=== PATIENT | female | born 1985 | race Caucasian/White ===

== ENCOUNTER → 2023-07-01 | Outpatient (CLI) | payer OTHER ==
--- NOTE | 2023-07-01 17:03 | XR ---
Abdomen: HISTORY: Chronic bloating. Comparison: None TECHNIQUE: 2 supine views of the abdomen were obtained. FINDINGS: The bowel gas pattern is nonspecific and there is no evidence of obstruction. No suspicious abdominal or pelvic calcifications are seen. The osseous structures are intact. Lung bases are clear. IMPRESSION: Nonspecific abdomen.
== END | disposition home or self-care (01) ==
LOC: RADXRMAIN 16:13
PROVIDERS: ATTEND Internal Medicine Gastroenterology
DX: R10.9 Unspecified abdominal pain (principal)
CPT/HCPCS: 74018

== ENCOUNTER 2023-08-18 09:32 | Day surgery (SDC) | payer OTHER ==
[~2023-08-18 09:32] MED LIST: LIDOCAINE 1% (10MG/ML) FOR IV START INTRADERMA PRN
[2023-08-18] MEDS: LACTATED RINGERS 1,000 ML IV SCH (09:57)
[2023-08-18] MEDS: IV FLUID CONTINUATION 1,000 ML IV ONE (10:10)
[2023-08-18 10:32] VITALS: TEMP 98
[2023-08-18] MEDS ORDERED: PROPOFOL 10 MG/ML 20 ML VIAL IV ONE (10:50)
--- NOTE | 2023-08-18 10:58 | P.PCN ---
Date of Procedure: 08/18/23 Procedure(s) Performed: BRIEF HISTORY: Patient is a 30-year-old, pleasant, white female scheduled for an upper endoscopy as above evaluation of chronic persistent nausea for the last 5 years duration. She has intermittent episodes of emesis. Denies any abdominal pain. She also complains of occasional dysphagia to solid. PROCEDURE PERFORMED: Esophagogastroduodenoscopy with biopsy. PREOPERATIVE DIAGNOSIS: Chronic intermittent nausea vomiting of 5 years duration. IV sedation per anesthesia. PROCEDURE: After informed consent was obtained, the patient was brought into the endoscopy unit. IV sedation was administered by Anesthesia under continuous monitoring. Initially the Olympus GIF-140 video endoscope was inserted into the mouth. Esophagus intubated without any difficulty. It was gradually advanced into the stomach and duodenum and carefully examined. The bulb and the second part of the duodenum appeared normal. Since weaning from the duodenum to evaluate for celiac disease. The scope at this time was withdrawn to the stomach, adequately insufflated with air, and upon careful examination, mucosa of the antrum, body, cardia and the fundus appeared normal. The scope was then withdrawn into the esophagus. Small hiatal hernia. Mild gastritis and biopsies were done from this area. Mucosa of the the GE junction was located at 39 cm from the incisors. There was 1 superficial erosion at the GE junction consistent with LA grade B reflux esophagitis. Rest of the esophagus appeared normal and the patient tolerated the procedure well. IMPRESSION: 1. Mild antral gastritis. 2. Small hiatal hernia and 1 superficial erosion at the GE junction consistent with LA grade B reflux esophagitis. RECOMMENDATIONS: The findings of this examination were discussed with the patient as well as her family. She was advised to follow-up with the biopsy results. Pepcid 20 mg twice daily. Follow-up in the office in 2 to 3 weeks..
[2023-08-18 11:11] VITALS: BP 111/78; PULSE 83; RESP 16
== END 2023-08-18 11:47 | disposition home or self-care (01) ==
LOC: ORWHC2ENDO 09:32
PROVIDERS: ATTEND Internal Medicine Gastroenterology
DX: K29.50 Unspecified chronic gastritis without bleeding (principal); K21.00 Gastro-esophageal reflux disease with esophagitis, without bleeding; K22.10 Ulcer of esophagus without bleeding; K44.9 Diaphragmatic hernia without obstruction or gangrene; I10 Essential (primary) hypertension; I47.10 Supraventricular tachycardia, unspecified; G89.29 Other chronic pain; F41.8 Other specified anxiety disorders; Z87.891 Personal history of nicotine dependence; Z88.8 Allergy status to other drugs, medicaments and biological substances; Z79.899 Other long term (current) drug therapy
CPT/HCPCS: 88305; 43239; J2704

== ENCOUNTER → 2023-12-08 | Outpatient (CLI) | payer OTHER ==
[2023-12-08 18:07] LABS: Partial Thromboplastin Time 24.6 sec (22.0-30.0); Prothrombin Time 11.1 sec (10.0-12.5)
[2023-12-09 02:27] LABS: Basophils # (A) 0.05 X 10*3/uL (0.00-0.10); Basophils % (A) 0.8 %; Eosinophils # (A) 0.35 X 10*3/uL (0.04-0.35); Eosinophils % (A) 5.3 %; HCT 41.8 % (37.2-46.3); HGB 14.2 g/dL (12.0-15.0); Lymphocytes # (A) 1.85 X 10*3/uL (0.90-5.00); Lymphocytes % (A) 27.9 %; MCH 29.8 pg (27.0-32.0); MCV 87.8 FL (80.0-97.0); Mean Platelet Volume 10.5 FL (9.5-12.2); Monocytes % (A) 4.5 %; NRBC Per 100 WBC 0 X 10*3/uL (0.00-0.01); Neutrophils # (A) 4.05 X 10*3/uL (1.80-7.70); Neutrophils % (A) 61.2 %; Platelet Count 331 X 10*3/uL (140-440); RBC 4.76 X 10*6/uL (4.10-5.20); RDW 13.7 % (11.5-14.5); WBC 6.62 X 10*3/uL (4.50-10.00)
[2023-12-09 03:07] LABS: % Iron Saturation 30.83 (12.00-45.00); ALT 8 U/L (8-44); AST 17 U/L (13-35); Albumin 4.4 g/dL (3.8-4.9); Albumin/Globulin Ratio 1.69 Ratio (1.60-3.17); Alkaline Phosphatase 54 U/L (41-126); BUN/Creat Ratio 8.71 Ratio (12.00-20.00); Blood Urea Nitrogen 6.1 mg/dL (9.0-27.0); C Reactive Protein <0.30 mg/dL (0.00-0.80); Calcium 9.3 mg/dL (8.7-10.3); Carbon Dioxide 25.9 mmol/L (21.6-31.8); Chloride 105 mmol/L (96-109); Ferritin 62.7 ng/mL (10.0-291.0); Globulin 2.6 g/dL (1.6-3.3); Glucose 86 mg/dL (70-110); Iron 127 UG/DL (50-170); Sodium 141 mmol/L (135-145); Total Bilirubin 0.4 mg/dL (0.3-1.2); Total Iron Binding Capacity 412 UG/DL (228-460)
[2023-12-09 05:08] LABS: Erythrocyte Sedimentation Rate 3 mm/Hr (0-20)
== END | disposition home or self-care (01) ==
LOC: LABWHC1 16:08
PROVIDERS: ATTEND Internal Medicine Gastroenterology
DX: R58 Hemorrhage, not elsewhere classified (principal)
CPT/HCPCS: 36415; 80053; 82728; 83540; 83550; 85025; 85610; 85652; 85730; 86140

== ENCOUNTER 2024-03-10 15:35 | Emergency (ER) | payer OTHER ==
--- NOTE | 2024-03-10 17:20 | ED ---
ENT HPI - General Chief complaint: ENT Stated complaint: Foreign obj in throat Time Seen by Provider: 03/10/24 17:02 Source: patient, RN notes reviewed Mode of arrival: ambulatory Limitations: no limitations - History of Present Illness Initial comments: This is a 38-year-old female with a history of eosinophilic esophagitis and fibromyalgia presenting to the emergency department for complaint of foreign body sensation of the right side of her throat. Patient is concerned that there may be a piece of alvarado that is lodged in her throat. She states that on 03/08/2024 is eating dinner that had a piece of crispy alvarado and felt the food scraped on the side of her throat. She endorses nausea with no reported vomiting. Denies dysphagia, dyspnea, fevers or chills. Patient endorses pain with swallowing. Patient had recent esophageal dilation with Dr. Hatch - Related Data Home Medications Medication Instructions Recorded Confirmed Desvenlafaxine Succinate [Pristiq] 100 mg PO HS 08/13/23 08/13/23 Dextroamphetamine/Amphetamine 15 mg PO QAM 08/13/23 08/13/23 LORazepam 0.5 mg PO HS 08/13/23 08/13/23 fentaNYL 25MCG/HR PATCH [Duragesic 25 mcg TOPICAL Q72H 08/13/23 08/13/23 25MCG/HR] nadoloL [Corgard] 20 mg PO HS 08/13/23 08/13/23 tiZANidine HCL [Zanaflex] 4 mg PO HS PRN 08/13/23 08/13/23 traZODone HCL 200 mg PO HS 08/13/23 08/13/23 Allergies Allergy/AdvReac Type Severity Reaction Status Date / Time prednisone Allergy NEUROPATHY Verified 03/10/24 16:25 IN FACE,HANDS,ARMS sumatriptan [From Imitrex] Allergy Unknown Verified 03/10/24 16:25 dicyclomine [From Bentyl] AdvReac URINARY Verified 03/10/24 16:25 RETENTION Review of Systems ROS Statement: Those systems with pertinent positive or pertinent negative responses have been documented in the HPI. ROS Other: All systems not noted in ROS Statement are negative. Past Medical History Past Medical History: Fibromyalgia, GERD/Reflux, Hypertension Additional Past Medical History / Comment(s): HX:SVT, MIGRAINES. PSORIASIS, SCATTERED OVER BODY. History of Any Multi-Drug Resistant Organisms: None Reported Past Surgical History: Section, Heart Catheterization Additional Past Surgical History / Comment(s): ABD LAP-PELVIC CONGESTION. LEEP X 2. Past Anesthesia/Blood Transfusion Reactions: No Reported Reaction Additional Past Anesthesia/Blood Transfusion Reaction / Comment(s): REACTS DIFFERENTLY DUE TO PAIN ISSUES. Past Psychological History: ADD/ADHD, Anxiety, Depression Smoking Status: Former smoker Past Alcohol Use History: Rare Past Drug Use History: Marijuana General Exam Limitations: no limitations General appearance: alert, in no apparent distress ENT exam: Present: normal exam, mucous membranes moist Neck exam: Present: normal inspection. Absent: tenderness, meningismus, lymphadenopathy Respiratory exam: Present: normal lung sounds bilaterally. Absent: respiratory distress, wheezes, rales, rhonchi, stridor Cardiovascular Exam: Present: regular rate, normal rhythm, normal heart sounds. Absent: systolic murmur, diastolic murmur, rubs, gallop, clicks GI/Abdominal exam: Present: soft, normal bowel sounds. Absent: distended, tenderness, guarding, rebound, rigid Extremities exam: Present: normal inspection, full ROM, normal capillary refill. Absent: tenderness, pedal edema, joint swelling, calf tenderness Skin exam: Present: warm, dry, intact, normal color. Absent: rash Course Vital Signs 03/10/24 03/10/24 03/10/24 16:23 18:07 20:07 Temperature 98.3 F 98.2 F Pulse Rate 96 84 85 Respiratory 16 18 16 Rate Blood Pressure 118/80 130/84 111/73 O2 Sat by Pulse 99 96 97 Oximetry Medical Decision Making - Medical Decision Making Was pt. sent in by a medical professional or institution (, PA, COST ACCOUNTING CLERK, urgent care, hospital, or prison...) When possible be specific @ -No Did you speak to anyone other than the patient for history (EMS, parent, family, police, friend...)? What history was obtained from this source @ -No Did you review nursing and triage notes (agree or disagree)? Why? @ -I reviewed and agree with nursing and triage notes Were old charts reviewed (outside hosp., previous admission, EMS record, old EKG, old radiological studies, urgent care reports/EKG's, prison records)? Report findings @ -No old charts were reviewed Differential Diagnosis (chest pain, altered mental status, abdominal pain women, abdominal pain men, vaginal bleeding, weakness, fever, dyspnea, syncope, headac he, dizziness, GI bleed, back pain, seizure, CVA, palpatations, mental health, musculoskeletal)? @ -Differential Dyspnea: Coronary syndrome, arrhythmia, tamponade, asthma, COPD, pulmonary embolism, p neumonia, pneumothorax, pulmonary effusion, anaphylaxis, diabetic ketoacidosis, flailed chest, pulmonary contusion, diaphragmatic rupture, anemia, neuromuscular, this is not meant to be an all-inclusive list. EKG interpreted by me (3pts min.). @ -None X-rays interpreted by me (1pt min.). @ -None done CT interpreted by me (1pt min.). @ -CT soft tissue neck with IV contrast no lymphadenopathy or masses identified U/S interpreted by me (1pt. min.). @ -None done What testing was considered but not performed or refused? (CT, X-rays, U/S, labs)? Why? @ -None What meds were considered but not given or refused? Why? @ -None Did you discuss the management of the patient with other professionals (professionals i.e. , PA, COST ACCOUNTING CLERK, lab, RT, psych nurse, social media marketing analyst, hematology nurse educator, teacher, railroad police officer, case investigator)? Give summary @ -No Was smoking cessation discussed for >3mins.? @ -No Was critical care preformed (if so, how long)? @ -No Were there social determinants of health that impacted care today? How? (Homelessness, low income, unemployed, alcoholism, drug addiction, t ransportation, low edu. Level, literacy, decrease access to med. care, prison, rehab)? @ -No Was there de-escalation of care discussed even if they declined (Discuss DNR or withdrawal of care, Hospice)? DNR status @ -No What co-morbidities impacted this encounter? (DM, HTN, Smoking, COPD, CAD, Cancer, CVA, ARF, Chemo, Hep., AIDS, mental health diagnosis, sleep apnea, morbid obesity)? @ -None Was patient admitted / discharged? Hospital course, mention meds given and route, prescriptions, significant lab abnormalities, going to OR and other pertinent info. @ -Discharge. 38-year-old female presenting with foreign body sensation in throat. On evaluation patient is noted to be quite tearful and anxious. Physical examination is unremarkable. She is provided with pain medications and antiemetics pending evaluation including CT. CT is unremarkable for foreign body or lymphadenopathy. Labs within normal limits. She is provided with viscous lidocaine, Maalox, Pepcid. On reevaluation patient states that she is feeling better. At this time, patient is stable for discharge. All questions have been answered at bedside and strict return parameters were discussed and she is verbalized understanding. Case discussed with Dr. Dean Undiagnosed new problem with uncertain prognosis? @ -No Drug Therapy requiring intensive monitoring for toxicity (Heparin, Nitro, Insulin, Cardizem)? @ -No Were any procedures done? @ -No Diagnosis/symptom? @ -foreign body sensation in throat Acute, or Chronic, or Acute on Chronic? @ -acute Uncomplicated (without systemic symptoms) or Complicated (systemic symptoms)? @ -uncomplicated Side effects of treatment? @ -No Exacerbation, Progression, or Severe Exacerbation? @ -No Poses a threat to life or bodily function? How? (Chest pain, [place], [place], pneumonia, PE, COPD, DKA, ARF, appy, cholecystitis, CVA, Diverticulitis, Homicidal, Suicidal, threat to staff... and all critical care pts) @ -No - Lab Data Result diagrams: 03/10/24 18:20 03/10/24 18:20 Lab Results 03/10/24 03/10/24 Range/Units 18:20 18:20 WBC 5.5 (3.8-10.6) k/uL RBC 4.25 (3.80-5.40) m/uL Hgb 13.2 (11.4-16.0) gm/dL Hct 38.7 (34.0-46.0) % MCV 91.0 (80.0-100.0) fL MCH 31.1 (25.0-35.0) pg MCHC 34.2 (31.0-37.0) g/dL RDW 12.3 (11.5-15.5) % Plt Count 277 (150-450) k/uL MPV 7.0 Neutrophils % 54 % Lymphocytes % 36 % Monocytes % 4 % Eosinophils % 4 % Basophils % 1 % Neutrophils # 3.0 (1.3-7.7) k/uL Lymphocytes # 2.0 (1.0-4.8) k/uL Monocytes # 0.2 (0-1.0) k/uL Eosinophils # 0.2 (0-0.7) k/uL Basophils # 0.1 (0-0.2) k/uL Sodium 134 L (137-145) mmol/L Potassium 4.5 (3.5-5.1) mmol/L Chloride 101 (98-107) mmol/L Carbon Dioxide 24 (22-30) mmol/L Anion Gap 9 mmol/L BUN 9 (7-17) mg/dL Creatinine 0.59 (0.52-1.04) mg/dL Est GFR (CKD-EPI)AfAm >90 (>60 ml/min/1.73 sqM) Est GFR (CKD-EPI)NonAf >90 (>60 ml/min/1.73 sqM) Glucose 82 (74-99) mg/dL Calcium 9.3 (8.4-10.2) mg/dL Total Bilirubin 0.7 (0.2-1.3) mg/dL AST 21 (14-36) U/L ALT 10 (4-34) U/L Alkaline Phosphatase 45 (38-126) U/L Total Protein 7.0 (6.3-8.2) g/dL Albumin 4.1 (3.5-5.0) g/dL Disposition Clinical Impression: Foreign body in throat Disposition: HOME SELF-CARE Condition: Stable Additional Instructions: Please return to the Emergency Department if symptoms worsen or any other concerns. Is patient prescribed a controlled substance at d/c from ED?: No Referrals: Desmond Zee MD [Primary Care Provider] - 1-2 days
[2024-03-10] MEDS: ONDANSETRON 4 MG/2 ML VIAL IVP STA (18:14)
[2024-03-10] MEDS: MORPHINE SULFATE 4 MG/ML SYRINGE IVP STA (18:16)
--- NOTE | 2024-03-10 18:21 | CT ---
EXAMINATION TYPE: CT soft tissue neck w con DATE OF EXAM: 03/10/2024 5:59 PM COMPARISON: None. CLINICAL INDICATION: Female, 38 years old with history of foreign body sensation in r side throat, r/ o; PHH, alvarado stuck in throat TECHNIQUE: Standard enhanced CT of the neck. Axial sections with coronal and sagittal reformats were obtained. Contrast used:100 mL of Isovue 300 with IV Contrast, (None if empty) Oral contrast used: (None if empty) CT DLP: 188.5 mGycm, Automated exposure control for dose reduction was used. FINDINGS: Brain: Visualized portions are grossly unremarkable. Orbits: Unremarkable Sinuses: Grossly unremarkable. Spaces of the neck: Clear and symmetric. Palpable marker in the right correlates with submandibular g land. Musculoskeletal: No acute osseous pathology. Lymph nodes: Multiple nonenlarged lymph nodes are seen along both anterior chains of the neck. Vascular structures: Visualized major arteries are patent without evidence of aneurysm. Thoracic Inlet/airway: Airway is patent. The lung apices are clear. Soft tissues/Thyroid: Thyroid and remainder of the soft tissues are unremarkable. Other: none. IMPRESSION: Right palpable marker correlates with the submandibular gland. No lymphadenopathy or mass identified. [facility], , 03/10/2024 6:18 PM
[2024-03-10 18:32] LABS: Basophils # (A) 0.1 k/uL (0-0.2); Basophils % (A) 1 %; Eosinophils # (A) 0.2 k/uL (0-0.7); Eosinophils % (A) 4 %; HCT 38.7 % (34.0-46.0); HGB 13.2 gm/dL (11.4-16.0); Lymphocytes % (A) 36 %; MCH 31.1 pg (25.0-35.0); MCHC 34.2 g/dL (31.0-37.0); Monocytes # (A) 0.2 k/uL (0-1.0); Monocytes % (A) 4 %; Neutrophils % (A) 54 %; Platelet Count 277 k/uL (150-450); RBC 4.25 m/uL (3.80-5.40); RDW 12.3 % (11.5-15.5); WBC 5.5 k/uL (3.8-10.6)
[2024-03-10 18:46] LABS: ALT 10 U/L (4-34); African American GFR (CKD) >90 (>60 ml/min/1.73 sqM); Albumin 4.1 g/dL (3.5-5.0); Anion Gap 9 mmol/L; Blood Urea Nitrogen 9 mg/dL (7-17); Calcium 9.3 mg/dL (8.4-10.2); Carbon Dioxide 24 mmol/L (22-30); Chloride 101 mmol/L (98-107); Glucose 82 mg/dL (74-99); Non-African American GFR(CKD) >90 (>60 ml/min/1.73 sqM); Sodium 134 mmol/L (137-145); Total Bilirubin 0.7 mg/dL (0.2-1.3)
[2024-03-10 18:57] LABS: Potassium 4.5 mmol/L (3.5-5.1)
[2024-03-10 18:58] LABS: AST 21 U/L (14-36); Alkaline Phosphatase 45 U/L (38-126)
[2024-03-10] MEDS: LIDOCAINE VISCOUS 2% 15 ML CUP PO ONE (19:51)
[2024-03-10] MEDS: FAMOTIDINE 20 MG/2 ML VIAL IV STA (19:51)
[2024-03-10] MEDS: MAG HYDROX/AL HYDROX/SIMETH 30 ML CUP PO PRN (19:51)
[2024-03-10 20:08] VITALS: BP 111/73; PULSE 85; RESP 16; TEMP 98.2
== END 2024-03-10 20:09 | disposition home or self-care (01) ==
LOC: EC 15:35
DX: T17.208A Unspecified foreign body in pharynx causing other injury, initial encounter (principal); Z87.891 Personal history of nicotine dependence; Z88.8 Allergy status to other drugs, medicaments and biological substances; W44.9XXA Unspecified foreign body entering into or through a natural orifice, initial encounter
CPT/HCPCS: 36415; 80053; 85025; 70491; 99284; 96374; 96375 ×2; J2270; J2405; J3490; Q9967